=== PATIENT | female | born 1935 | race Caucasian/White ===

== ENCOUNTER 2018-08-30 22:26 | Inpatient (IN) ==
--- NOTE | 2018-08-30 23:03 | XRay Report ---
XR hip LT 2-3V w pelvis CLINICAL HISTORY: 83 years-old Female presenting with fall, pain, dementia. TECHNIQUE: Single frontal view of the pelvis and frontal and crosstable lateral views of the left hip were obtained. COMPARISON: Correlation made to plain radiograph of the pelvis from 06/04/2018. FINDINGS: Osteopenia suspected. This mildly limits evaluation. Mild multilevel degenerative changes of the lowe r lumbar spine. Sacral iliac joints, pubic symphysis, and hip joints congruent. Arcuate lines of the sacrum grossly intact. The bony pelvis is intact. Right femoral head and neck intact. Left femoral he ad congruent with the acetabulum, however, a transcervical fracture is noted. There is slight anterio r displacement of the distal fracture fragment by less than 1 cm. Slightly rotation of the distal fra cture fragment. IMPRESSION: 1. Transcervical left femoral neck fracture with less than 1 cm of anterior displacement of the dist al fracture fragment. 2. Osteopenia. Electronically signed by: Storm Chawla M.D. 08/30/2018 11:01 PM
[2018-08-30 23:51] LABS: Basophils # (auto) 0.01 K/uL (0-0.2); Basophils % (auto) 0.1 %; Eosinophils # (auto) 0.03 K/uL (0-0.5); Eosinophils % (auto) 0.3 %; Hematocrit (blood only) 34.2 % (37-47); Hemoglobin 11.2 g/dL (12.0-16.0); Immature Granulocytes # (auto) 0.04 K/uL (0.00-0.02); Immature Granulocytes % (auto) 0.4 %; Lymphocytes # (auto) 0.95 K/uL (1.2-3.4); Lymphocytes % (auto) 9.3 %; Mean Corpuscular Hgb Conc 32.7 g/dL (32-36); Mean Corpuscular Volume 91.4 fL (80-100); Mean Platelet Volume 8.7 fL (7.4-10.4); Monocytes # (auto) 0.67 K/uL (0.11-0.59); Monocytes % (auto) 6.5 %; Neutrophils # (auto) 8.57 K/uL (1.4-6.5); Neutrophils % (auto) 83.4 %; Platelet Count 280 K/uL (130-400); RDW Coefficient of Variation 12.8 % (11.5-14.5); RDW Standard Deviation 42.9 fL (36.4-46.3); Red Blood Count 3.74 M/uL (4.2-5.4); White Blood Count 10.27 K/uL (4.8-10.8)
--- NOTE | 2018-08-30 23:59 | Emergency Department Note ---
History of Present Illness General Chief complaint: Fall Stated complaint: FALL, HIP PAIN History of Present Illness This 83-year-old presents to the ER complaining of fall Location: Left hip Quality: Painful Severity: Moderate Duration: Tonight Timing: Patient was found on the ground at the sn[facility] Context: Patient was unable to bear weight and was sent in Modifying factors: better with nothing; worse with movement Patient is demented and confused at baseline. I spoke to the snf nurse who states they found her on the ground and patient is unable to bear weight. is here at bedside but was not there. states she is at baseline. Home Medications Home Medications Medication Instructions Recorded Confirmed Type atenolol [Tenormin] 25 mg PO QAM 12/10/17 08/30/18 History cyanocobalamin (vitamin B-12) 1,000 mcg PO QAM 12/10/17 08/30/18 History [Vitamin B-12] docusate sodium [Colace] 100 mg PO BID 12/10/17 08/30/18 History donepezil [Aricept] 10 mg PO HS 12/10/17 08/30/18 History duloxetine [Cymbalta] 20 mg PO BID 12/10/17 08/30/18 History olanzapine [Zyprexa] 1.25 mg PO HS 12/10/17 08/30/18 History polyethylene glycol 3350 [Miralax] 17 g PO DAILY 12/10/17 08/30/18 History glycerin (adult) 1 supp [place] DAILY PRN 06/04/18 08/30/18 History loratadine [Claritin] 10 mg PO DAILY 07/16/18 08/30/18 History atorvastatin 10 mg tablet 10 mg PO HS #90 tab 07/28/18 08/30/18 Rx atropine [Isopto Atropine] 2 drp SUBLINGUAL DIRECTED PRN 08/30/18 08/31/18 History lorazepam [Lorazepam Intensol] 1 mg PO Q4 PRN 08/30/18 08/30/18 History morphine concentrate 10 mg PO Q24W PRN 08/30/18 08/30/18 History acetaminophen 650 mg PO Q6H PRN 08/31/18 08/31/18 History acetaminophen 650 mg [place] Q4 PRN 08/31/18 08/31/18 History aspirin [Aspirin Childrens] 81 mg PO DAILY 08/31/18 08/31/18 History clobetasol 1 applic TOPICAL 3XWK 08/31/18 08/31/18 History conjugated estrogens [Premarin] 1 applic VAGINAL 3XWK 08/31/18 08/31/18 History magnesium hydroxide [Milk of 30 ml PO DAILY PRN 08/31/18 08/31/18 History Magnesia] sennosides [senna] 8.6 mg PO DAILY 08/31/18 08/31/18 History Allergies Allergy/AdvReac Type Severity Reaction Status Date / Time No Known Allergies Allergy Unverified 08/31/18 00:10 Past Med/Surg History Medical History Hyperlipidemia (Chronic) Hypertension (Chronic) Yeast infection (Resolved) Perineum pain, female (Resolved) Vascular dementia (Chronic) No pertinent family history Surgical History No pertinent past surgical history Family History Other No pertinent family history Social History Preferred Language: Lebanese marital status: Current Living Situation: Personal Care Facility Current Living Situation Comment: [facility] Feels Safe at Home: Yes Smoking Status: Never smoker Review of Systems Unobtainable due to cognitive status Physical Exam Vital Signs Vital Signs - 24 hr 08/30/18 22:26 Temperature 37.1 C Temperature Source Oral Sepsis Recent Fever Within 48 Hours No Sepsis New/Unexplained Change in Mental Status No Sepsis Action Taken by Nursing No Action Required Pulse Rate 100 H Respiratory Rate 18 Respiratory Effort / Characteristics Non-Labored Respiratory Depth Normal Respiratory Pattern Regular Blood Pressure 154/74 H Blood Pressure Mean 100 Pulse Oximetry 97 Oxygen Delivery Method Room Air VITALS: Vitals are noted on the nurse's note and reviewed by myself. Vital signs stable. GENERAL: Pleasant female demented, unable to follow commands, in no acute distress, nondiaphoretic, well-developed well-nourished. SKIN: The skin was without rashes, erythema, edema, or bruising. There is no tenting of the skin. Capillary reflex less than 2 seconds. HEAD: Normocephalic atraumatic. EARS: External auditory canals clear, tympanic membranes pearly mabry without erythema or effusion bilaterally. EYES: Pupils equal round and reactive to light and accommodation. Conjunctivae without injection, sclerae without icterus. Extraocular movements intact. NOSE: Patent, turbinates without inflammation or discharge MOUTH: Mucous membranes moist. Pharynx without erythema or exudate. Uvula midline. Airway patent. Tongue does not deviate. NECK: Supple without nuchal rigidity. No lymphadenopathy. No thyromegaly. Cervical spine is nontender. No JVD. HEART: Regular rate and rhythm LUNGS: Clear to auscultation bilaterally without wheezes, rales or rhonchi. No retractions or accessory muscle use. ABDOMEN: Positive bowel sounds x 4. Normal tympanic percussion. Soft, nontender, without masses or organomegaly. Abdul sign negative. No guarding or rebound tenderness. No CVA tenderness MUSCULOSKELETAL: No muscle atrophy, erythema, or edema noted. Left hip tender to palpation with increased pain with range of motion. Right hip full range of motion. Pelvis stable. NEURO: Patient was alert but not oriented to person place and time. Medical Decision Making Medical Records Attestation: I reviewed the patient's medical records. Home Medications Current Medication List: was personally reviewed by me Laboratory Data Attestation: I reviewed the patient's lab results. Result diagrams: 08/30/18 23:42 08/30/18 23:42 Lab Results 08/30/18 08/30/18 08/30/18 Range/Units 23:42 23:42 23:42 WBC 10.27 (4.8-10.8) K/uL RBC 3.74 L (4.2-5.4) M/uL Hgb 11.2 L (12.0-16.0) g/dL Hct 34.2 L (37-47) % MCV 91.4 (80-100) fL MCH 29.9 (25-34) pg MCHC 32.7 (32-36) g/dL RDW Std Deviation 42.9 (36.4-46.3) fL RDW Coeff of Gareth 12.8 (11.5-14.5) % Plt Count 280 (130-400) K/uL MPV 8.7 (7.4-10.4) fL Immature Gran % (Auto) 0.4 % Neut % (Auto) 83.4 % Lymph % (Auto) 9.3 % [place] % (Auto) 6.5 % Eos % (Auto) 0.3 % Baso % (Auto) 0.1 % Immature Gran # (Auto) 0.04 H (0.00-0.02) K/uL Neut # (Auto) 8.57 H (1.4-6.5) K/uL Lymph # (Auto) 0.95 L (1.2-3.4) K/uL [place] # (Auto) 0.67 H (0.11-0.59) K/uL Eos # (Auto) 0.03 (0-0.5) K/uL Baso # (Auto) 0.01 (0-0.2) K/uL PT 10.4 (9.0-12.0) Seconds INR 1.0 (0.9-1.1) APTT 27.3 (21.0-31.0) Seconds PTT Ratio 1.0 Sodium 139 (136-145) mmol/L Potassium 4.5 (3.5-5.1) mmol/L Chloride 106 (98-107) mmol/L Carbon Dioxide 29 (21-32) mmol/L Anion Gap 5.0 (3-11) BUN 25 H (7-18) mg/dl Creatinine 1.25 H (0.6-1.2) mg/dl Est Cr Clr Drug Dosing 26.3 ml/min Est GFR ( Amer) 46.4 Est GFR (Non-Af Amer) 40.0 BUN/Creatinine Ratio 20.2 H (10-20) Glucose 177 H (70-99) mg/dl Calcium 9.8 (8.5-10.1) mg/dl Total Bilirubin 0.3 (0.2-1) mg/dl AST 15 (15-37) U/L ALT 22 (12-78) U/L Alkaline Phosphatase 106 (45-117) U/L Total Protein 7.4 (6.4-8.2) gm/dl Albumin 3.5 (3.4-5.0) gm/dl Globulin 3.9 (2.5-4.0) gm/dl Albumin/Globulin Ratio 0.9 (0.9-2) Imaging Data Attestation: I personally reviewed and interpreted this imaging study as follows: [facility] Narrative Prior records reviewed and summarized above. Triage Nursing notes reviewed. Additional history obtained from family. The patient's history was concerning for hip pain. Differential diagnosis: Etiologies such as fracture, dislocation, neurovascular compromise, compartment syndrome, soft tissue injury, as well as others were entertained. Physical examination: Consistent with an isolated hip injury. ER treatment provided: IV lock Morphine NPO Bedrest On reassessment the patient felt better. Diagnostics interpreted by me: ECG: Poor baseline, normal sinus, no acute ST-T wave changes, rate of 107. Depression sinus tachycardia interpreted by myself I think arrhythmia is unlikely. EKG shows normal sinus rhythm with no interval abnormalities such as QT prolongation or WPW. There are no findings to suggest Brugada syndrome. Cardiac monitoring in the emergency department reveals no tachycardic or bradycardic dysrhythmia. Hypertrophic cardiomyopathy was considered but there are no clear historical elements pointing toward this. EKG is not suggestive. The QRS voltage is not extremely large and there are no suggestive Q waves. The labs revealed mild anemia. Imaging studies: Xrays XR hip LT 2-3V w pelvis CLINICAL HISTORY: 83 years-old Female presenting with fall, pain, dementia. TECHNIQUE: Single frontal view of the pelvis and frontal and crosstable lateral views of the left hip were obtained. COMPARISON: Correlation made to plain radiograph of the pelvis from 06/04/2018. FINDINGS: Osteopenia suspected. This mildly limits evaluation. Mild multilevel degenerative changes of the lower lumbar spine. Sacral iliac joints, pubic symphysis, and hip joints congruent. Arcuate lines of the sacrum grossly intact. The bony pelvis is intact. Right femoral head and neck intact. Left femoral head congruent with the acetabulum, however, a transcervical fracture is noted. There is slight anterior displacement of the distal fracture fragment by less than 1 cm. Slightly rotation of the distal fracture fragment. IMPRESSION: 1. Transcervical left femoral neck fracture with less than 1 cm of anterior displacement of the distal fracture fragment. 2. Osteopenia. Electronically signed by: Storm Chawla M.D. Chest x-ray with no acute consolidation, pneumothorax or free of mitral rotation. The patient has an isolated hip fracture and will need admission to the hospital. Consultation: A consultation was placed with medicine, Dr. Mar and orthopedics was notified. The case was discussed and diagnostics were reviewed. The patient was evaluated in the ER for further treatment. Exam and history seem consistent with hip fracture. Patient will be admitted to medicine. Orthopedics is notified. Family is agreeable to treatment plan of admission. Case reviewed with my attending The chart was completed utilizing [employer] voice recognition software. Grammatical errors, random word insertions, pronoun errors, and incomplete sentences are an occassional consequence of this system due to software limitations, ambient noise, and hardware issues. Any formal questions or concerns about the content, text, or information contained within the body of this dictation should be directly addressed to the physician client account assistant for clarification. Impression & Plan Closed fracture of left hip Discharge Plan Visit Data Chief Complaint: Fall Stated Complaint: FALL, HIP PAIN ED Provider: Benjamin Taylor ED Midlevel Provider: Fern Mccullough Discharge Problem: Closed fracture of left hip Patient Disposition: Admitted As Inpatient Condition: Fair Forms Stand Alone Forms: My [facility] Prescriptions Prescriptions: No Action atorvastatin [Lipitor] 10 mg tablet 10 mg PO HS Qty: 90 RF: 3 polyethylene glycol 3350 [Miralax] 17 gram Powder In Packet 17 g PO DAILY RF: 0 donepezil [Aricept] 10 mg Tablet 10 mg PO HS RF: 0 atenolol [Tenormin] 25 mg Tablet 25 mg PO QAM RF: 0 olanzapine [Zyprexa] 2.5 mg Tablet 1.25 mg PO HS RF: 0 cyanocobalamin (vitamin B-12) [Vitamin B-12] 500 mcg Tablet 1,000 mcg PO QAM RF: 0 docusate sodium [Colace] 100 mg Capsule 100 mg PO BID RF: 0 duloxetine [Cymbalta] 20 mg Capsule,Delayed Release(Dr/Ec) 20 mg PO BID RF: 0 loratadine [Claritin] 10 mg Tablet 10 mg PO DAILY RF: 0 morphine concentrate 100 mg/5 mL (20 mg/mL) solution 10 mg PO Q24W PRN (Reason: Pain) RF: 0 atropine [Isopto Atropine] 1 % drops 2 drp sublingual DIRECTED PRN (Reason: Itching) RF: 0 lorazepam [Lorazepam Intensol] 2 mg/mL concentrate 1 mg PO Q4 PRN (Reason: Agitation) RF: 0 sennosides [senna] 8.6 mg Tablet 8.6 mg PO DAILY RF: 0 acetaminophen 325 mg Tablet 650 mg PO Q6H PRN (Reason: Pain) RF: 0 acetaminophen 650 mg suppository 650 mg W[place] Q4 PRN (Reason: moderate pain) RF: 0 magnesium hydroxide [Milk of Magnesia] 400 mg/5 mL Suspension 30 ml PO DAILY PRN (Reason: Constipation) RF: 0 Premarin 0.625 mg/gram Cream 1 applic VAGINAL 3XWK RF: 0 aspirin [Aspirin Childrens] 81 mg Tablet,Chewable 81 mg PO DAILY RF: 0 clobetasol 0.05 % Ointment 1 applic TOPICAL 3XWK RF: 0 glycerin (adult) Suppository 1 supp W[place] DAILY PRN (Reason: Constipation) RF: 0 Referrals Referrals: Rafa Hall MD [Primary Care Provider] - Discharge Problem: Closed fracture of left hip Qualifiers: Encounter type: initial encounter Qualified Code(s): S72.002A - Fracture of unspecified part of neck of left femur, initial encounter for closed fracture
[2018-08-31] MEDS ORDERED: MoRPHine SULFATE 4 MG/ML 1 ML CARP\\VIAL IV STA (00:10)
--- NOTE | 2018-08-31 00:11 | History & Physical Report ---
Date of Service August 31, 2018 Assessment & Plan (1) Closed fracture of left hip: Mrs. Wiley is an 83-year-old female who presents via EMS to the emergency room after an unwitnessed fall at her home at [facility] earlier this evening. She is said to have fallen in her room, and then complained of persistent hip pain. In the ED: Radiograph of the hip and pelvis showed transcervical left femoral neck fracture with less than 1 cm of anterior displacement of the distal fracture fragment and osteopenia. Patient was given morphine 4 mg. EKG appears to have some artifact, normal sinus no ST-T wave changes. #Closed left hip fracture, minimally displaced -orthopedics consulted -pain control with 2mg morphine q4h PRN, acetaminophen -Nogueira in place as well #Elevated creatinine -1.25 from her baseline of 0.98 -Dry on exam, suspect prerenal mild azotemia -IV fluids -Follow BMP, avoid nephrotoxic agents #Anemia, normocytic -Appears to be at her baseline, will likely become more anemic with this fracture -Follow clinically #Hospice patient -per was begun on hospice 1-2 weeks prior to admission. Lengthy discussion regarding wishes, code status updated. FEN/GI: N.p.o. until seen by Ortho. NSS running at 125. Nogueira in place. DVT ppx: Lovenox every 24 CODE STATUS: DNR/DNI as discussed with her which is her proxy. Patient was placed on hospice 1 to 2 weeks ago per her . Polst forms needs updating. DISPO: MedSurg Other ongoing medical problems: #Vascular dementia, nonverbal: continue olanzapine, Aricept, reorientation #Hypertension: Continue atenolol 25 mg every morning #Hyperlipidemia: Continue statin--given the patient is on hospice, this medication could likely be de-prescribed. As well as her aspirin. #Vaginitis: Continue Premarin and topical clobetasol #Depression: Continue Cymbalta (2) No pertinent past surgical history: (3) Hyperlipidemia: (4) Hypertension: (5) Vascular dementia: History of Present Illness Chief Complaint: Unwitnessed fall at home in [facility]. Primary Care Provider: Rafa Hall MD Mrs. Wiley is an 83-year-old female who presents via EMS to the emergency room after an unwitnessed fall at her home at [facility] earlier this evening. She is said to have fallen in her room, and then complained of persistent hip pain. She is accompanied by her . In the ED: Radiograph of the hip and pelvis showed transcervical left femoral neck fracture with less than 1 cm of anterior displacement of the distal fracture fragment and osteopenia. Patient was given morphine 4 mg. EKG appears to have some artifact, normal sinus no ST-T wave changes. PMH 1. Vascular dementia with behavioral disturbance 2. Hypotension 3. B12 deficiency 4. Hyperlipidemia 5. 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 On hospice 8. Hypertension PSH 1. Appendectomy SH Lives at [facility]. Is . is her proxy. Has a daughter who is local. Originally born in [place], has reverted to speaking only in Pashto. Allergies Allergy/AdvReac Type Severity Reaction Status Date / Time No Known Allergies Allergy Unverified 08/31/18 00:10 Home Medications Home Medications Medication Instructions Recorded Confirmed Type atenolol [Tenormin] 25 mg PO QAM 12/10/17 08/30/18 History cyanocobalamin (vitamin B-12) 1,000 mcg PO QAM 12/10/17 08/30/18 History [Vitamin B-12] docusate sodium [Colace] 100 mg PO BID 12/10/17 08/30/18 History donepezil [Aricept] 10 mg PO HS 12/10/17 08/30/18 History duloxetine [Cymbalta] 20 mg PO BID 12/10/17 08/30/18 History olanzapine [Zyprexa] 1.25 mg PO HS 12/10/17 08/30/18 History polyethylene glycol 3350 [Miralax] 17 g PO DAILY 12/10/17 08/30/18 History glycerin (adult) 1 supp DC DAILY PRN 06/04/18 08/30/18 History loratadine [Claritin] 10 mg PO DAILY 07/16/18 08/30/18 History atorvastatin 10 mg tablet 10 mg PO HS #90 tab 07/28/18 08/30/18 Rx atropine [Isopto Atropine] 2 drp SUBLINGUAL DIRECTED PRN 08/30/18 08/31/18 History lorazepam [Lorazepam Intensol] 1 mg PO Q4 PRN 08/30/18 08/30/18 History morphine concentrate 10 mg PO Q24W PRN 08/30/18 08/30/18 History acetaminophen 650 mg PO Q6H PRN 08/31/18 08/31/18 History acetaminophen 650 mg DC Q4 PRN 08/31/18 08/31/18 History aspirin [Aspirin Childrens] 81 mg PO DAILY 08/31/18 08/31/18 History clobetasol 1 applic TOPICAL 3XWK 08/31/18 08/31/18 History conjugated estrogens [Premarin] 1 applic VAGINAL 3XWK 08/31/18 08/31/18 History magnesium hydroxide [Milk of 30 ml PO DAILY PRN 08/31/18 08/31/18 History Magnesia] sennosides [senna] 8.6 mg PO DAILY 08/31/18 08/31/18 History Past Med/Surg History Medical History Hyperlipidemia (Chronic) Hypertension (Chronic) Yeast infection (Resolved) Perineum pain, female (Resolved) Vascular dementia (Chronic) No pertinent family history Surgical History No pertinent past surgical history Family History Other No pertinent family history Social History Preferred Language: Georgian Communication Ability: Impaired Communication Ability Comment: History of dementia, patient unable to respond marital status: Current Living Situation: [facility] Current Living Situation Comment: [facility] Feels Safe at Home: Yes Smoking Status: Unknown if ever smoked Physical Exam Physical Exam: Vitals noted and within normal limits with the exception of mild hypertension GENERAL: Awake, alert and nonverbal, which states is her baseline. nontoxic-appearing, in mild distress. HENT: Normocephalic, atraumatic. Nasal cannula in place. Mucus membranes appear dry. EYES: Normal conjunctiva. Sclera non-icteric. EOMI. NECK: Supple. Full range of motion. RESPIRATORY: Clear to auscultation. Normal work of breathing. CARDIAC: Regular rate, normal rhythm. Extremities warm and well perfused. ABDOMEN: non-distended. LOWER EXTREMITIES: Inspection of calves reveal equal size bilaterally. No edema. NEURO: No gross focal motor deficits noted. Nonverbal, difficulty with following commands. SKIN: Rash not present. No jaundice noted. PSYCH: Appropriate mood and affect. MSK: Left lower extremity with slight external rotation. Exam limited by agitation. Exam as done by Nkechi Jose MD, Gl[employer] Presser. Results & Data Vital Signs (Past 12 Hours) Vital Signs Temp Pulse Resp BP Pulse Ox 08/30/18 22:26 37.1 C 100 H 18 154/74 H 97 Laboratory Results 08/30/18 08/30/18 08/30/18 Range/Units 23:42 23:42 23:42 WBC (4.8-10.8) K/uL RBC (4.2-5.4) M/uL Hgb (12.0-16.0) g/dL Hct (37-47) % MCV (80-100) fL MCH (25-34) pg MCHC (32-36) g/dL RDW Std Deviation (36.4-46.3) fL RDW Coeff of Gareth (11.5-14.5) % Plt Count (130-400) K/uL MPV (7.4-10.4) fL Immature Gran % (Auto) % Neut % (Auto) % Lymph % (Auto) % Lee % (Auto) % Eos % (Auto) % Baso % (Auto) % Immature Gran # (Auto) (0.00-0.02) K/uL Neut # (Auto) (1.4-6.5) K/uL Lymph # (Auto) (1.2-3.4) K/uL Lee # (Auto) (0.11-0.59) K/uL Eos # (Auto) (0-0.5) K/uL Baso # (Auto) (0-0.2) K/uL PT 10.4 (9.0-12.0) Seconds INR 1.0 (0.9-1.1) APTT 27.3 (21.0-31.0) Seconds PTT Ratio 1.0 Sodium 139 (136-145) mmol/L Potassium 4.5 (3.5-5.1) mmol/L Chloride 106 (98-107) mmol/L Carbon Dioxide 29 (21-32) mmol/L Anion Gap 5.0 (3-11) BUN 25 H (7-18) mg/dl Creatinine 1.25 H (0.6-1.2) mg/dl Est Cr Clr Drug Dosing 26.3 ml/min Est GFR ( Amer) 46.4 Est GFR (Non-Af Amer) 40.0 BUN/Creatinine Ratio 20.2 H (10-20) Glucose 177 H (70-99) mg/dl Calcium 9.8 (8.5-10.1) mg/dl Total Bilirubin 0.3 (0.2-1) mg/dl AST 15 (15-37) U/L ALT 22 (12-78) U/L Alkaline Phosphatase 106 (45-117) U/L Total Protein 7.4 (6.4-8.2) gm/dl Albumin 3.5 (3.4-5.0) gm/dl Globulin 3.9 (2.5-4.0) gm/dl Albumin/Globulin Ratio 0.9 (0.9-2) Blood Type A Positive Antibody Screen NEGATIVE 08/30/18 Range/Units 23:42 WBC 10.27 (4.8-10.8) K/uL RBC 3.74 L (4.2-5.4) M/uL Hgb 11.2 L (12.0-16.0) g/dL Hct 34.2 L (37-47) % MCV 91.4 (80-100) fL MCH 29.9 (25-34) pg MCHC 32.7 (32-36) g/dL RDW Std Deviation 42.9 (36.4-46.3) fL RDW Coeff of Gareth 12.8 (11.5-14.5) % Plt Count 280 (130-400) K/uL MPV 8.7 (7.4-10.4) fL Immature Gran % (Auto) 0.4 % Neut % (Auto) 83.4 % Lymph % (Auto) 9.3 % Lee % (Auto) 6.5 % Eos % (Auto) 0.3 % Baso % (Auto) 0.1 % Immature Gran # (Auto) 0.04 H (0.00-0.02) K/uL Neut # (Auto) 8.57 H (1.4-6.5) K/uL Lymph # (Auto) 0.95 L (1.2-3.4) K/uL Lee # (Auto) 0.67 H (0.11-0.59) K/uL Eos # (Auto) 0.03 (0-0.5) K/uL Baso # (Auto) 0.01 (0-0.2) K/uL PT (9.0-12.0) Seconds INR (0.9-1.1) APTT (21.0-31.0) Seconds PTT Ratio Sodium (136-145) mmol/L Potassium (3.5-5.1) mmol/L Chloride (98-107) mmol/L Carbon Dioxide (21-32) mmol/L Anion Gap (3-11) BUN (7-18) mg/dl Creatinine (0.6-1.2) mg/dl Est Cr Clr Drug Dosing ml/min Est GFR ( Amer) Est GFR (Non-Af Amer) BUN/Creatinine Ratio (10-20) Glucose (70-99) mg/dl Calcium (8.5-10.1) mg/dl Total Bilirubin (0.2-1) mg/dl AST (15-37) U/L ALT (12-78) U/L Alkaline Phosphatase (45-117) U/L Total Protein (6.4-8.2) gm/dl Albumin (3.4-5.0) gm/dl Globulin (2.5-4.0) gm/dl Albumin/Globulin Ratio (0.9-2) Blood Type Antibody Screen Diagnostic Findings XR hip LT 2-3V w pelvis CLINICAL HISTORY: 83 years-old Female presenting with fall, pain, dementia. TECHNIQUE: Single frontal view of the pelvis and frontal and crosstable lateral views of the left hip were obtained. COMPARISON: Correlation made to plain radiograph of the pelvis from 06/04/2018. FINDINGS: Osteopenia suspected. This mildly limits evaluation. Mild multilevel degenerative changes of the lower lumbar spine. Sacral iliac joints, pubic symphysis, and hip joints congruent. Arcuate lines of the sacrum grossly intact. The bony pelvis is intact. Right femoral head and neck intact. Left femoral head congruent with the acetabulum, however, a transcervical fracture is noted. There is slight anterior displacement of the distal fracture fragment by less than 1 cm. Slightly rotation of the distal fracture fragment. IMPRESSION: 1. Transcervical left femoral neck fracture with less than 1 cm of anterior displacement of the distal fracture fragment. 2. Osteopenia. Electronically signed by: Storm Chawla M.D. Code Status & VTE Plan Code Status DNR/DNI as discussed with her proxy. Supervising Physician Co-Signing Physician Notes Attending addendum: I have physically seen this patient, have supervised the medical residents activities, and agree with the H&P unless as otherwise noted. Assessment and Plan: Closed left femoral neck fracture- [facility]. NPO. IV fluids. Morphine 2 mg IV every 4 hours as needed severe pain. Acetaminophen 650 mg p.o. every 6 hours as needed or 1 5 mg IV every 8 hours PRN mild pain or temperature. Nogueira catheter. Consult orthopedics. Remainder of orders and notations as noted. PG Care Time/CCT Total # of Minutes Spent Total Time Spent with Patient: Total time spent is greater than 50% in coordination of care (as documented) at patient's floor/unit and/or counseling patient: Resident Activity Tracking Resident Involvement: Resident Care Provided Care Provided: Adult Hospital Medicine (1) Closed fracture of left hip Encounter type: initial encounter Qualified Code(s): S72.002A - Fracture of unspecified part of neck of left femur, initial encounter for closed fracture
[2018-08-31 00:12] LABS: Albumin Level 3.5 gm/dl (3.4-5.0); BUN Creatinine Ratio 20.2 (10-20); Calcium 9.8 mg/dl (8.5-10.1); Creatinine Clr Calc Pharmacy 26.3 ml/min; Est GFR (African American) 46.4; Potassium 4.5 mmol/L (3.5-5.1)
[2018-08-31 00:15] LABS: Albumin Globulin Ratio 0.9 (0.9-2); Bilirubin,Total 0.3 mg/dl (0.2-1); Globulin 3.9 gm/dl (2.5-4.0); Total Protein 7.4 gm/dl (6.4-8.2)
[2018-08-31 00:17] LABS: Partial Thromboplastin Time 27.3 Seconds (21.0-31.0); Prothrombin Time 10.4 Seconds (9.0-12.0)
--- NOTE | 2018-08-31 00:23 | Emergency Department Note ---
ED Visit Note Staff note: I have seen and examined this patient. I have discussed this case with my PA and generally agree with the ED note and findings. . : Closed fracture of left hip Qualifiers: Encounter type: initial encounter Qualified Code(s): S72.002A - Fracture of unspecified part of neck of left femur, initial encounter for closed fracture
[2018-08-31] MEDS ORDERED: ACETAMINOPHEN 325 MG TAB PO PRN (02:21)
[2018-08-31] MEDS ORDERED: MAGNESIUM HYDROXIDE SUSP 30 ML UDC PO PRN (02:21)
[2018-08-31] MEDS ORDERED: MoRPHine SULFATE 10 MG/0.5 ML UDP PO PRN (02:21)
[2018-08-31] MEDS ORDERED: GLYCERIN ADULT 12 EA SUPP PR PRN (02:21)
[2018-08-31] MEDS ORDERED: ATROPINE SULFATE 1% OP SOLN 2 ML BTL SL PRN (02:21)
[2018-08-31] MEDS ORDERED: ACETAMINOPHEN 650 MG SUPP PR PRN (02:21)
[2018-08-31] MEDS: SODIUM CHLORIDE 0.9% 1000ML 1,000 ML IV SCH ×3 (03:20→18:49)
[2018-08-31 03:43] LABS: Appearance Urine Turbid (Clear); Bacteria Urine Automated Negative (Negative); Bilirubin Urine Negative (Negative); Blood Urine 2+ (Negative); Color Urine Yellow; Epithelial Cell Urine Auto 20-30 /lpf (0-5); Glucose Urine UA Negative (Negative); Ketones Urine Negative (Negative); Leukocyte Esterase Urine 3+ (Negative); Nitrite Urine Negative (Negative); Specific Gravity Urine 1.016 (1.000-1.030); Urobilinogen Urine Negative (Negative); WBC Urine Automated >30 /hpf (0-5); pH Urine 7.5 (4.5-7.5)
[2018-08-31 03:54] LABS: Protein Urine 2+ (Negative)
[2018-08-31 04:10] LABS: RBC Urine Automated 0-4 /hpf (0-4)
[2018-08-31 04:13] LABS: Cast Urine Automated 0 /lpf (0-5)
[2018-08-31] MEDS: ASPIRIN 81 MG CHEW PO SCH (09:07)
[2018-08-31] MEDS: DOCUSATE SODIUM 100 MG CAP PO SCH ×2 (09:07→20:36)
[2018-08-31] MEDS: ATENOLOL 25 MG TABLET PO SCH (09:08)
[2018-08-31] MEDS: LORATADINE 10 MG TAB PO SCH (09:08)
[2018-08-31] MEDS: DULOXETINE HCL 20 MG CAP PO SCH ×2 (09:08→20:37)
[2018-08-31] MEDS: POLYETHYLENE (MIRALAX) 17 GM PACK PO SCH (09:09)
[2018-08-31] MEDS: ENOXAPARIN INJ 30 MG/0.3 ML SYR SQ SCH (09:09)
[2018-08-31] MEDS: CYANOCOBALAMIN 500 MCG TABLET (VITAMIN B-12) PO SCH (09:10)
[2018-08-31] MEDS: SENNA 8.6 MG TAB PO SCH (09:10)
--- NOTE | 2018-08-31 09:39 | Orthopedic Consultation ---
Date of Consultation August 31, 2018 Assessment & Plan (1) Closed fracture of left hip: Spoke with the hospitalist team who state she is not cleared medically for surgery. After a lengthy discussion with the patient's family regarding my above clinical findings as well as reviewing her images with them, I explained that the patient is not medically stable for surgery. We did discuss in general terms of the recommended [id number] treatment versus surgery. Risks of surgery, which include but are not limited to: bleeding, infection, re- operation, damage to nerves and arteries, continued pain, failure of the hardware, dislocation, DVT, and . In addition the family is aware of the 20-30% morbidity associated with hip fracture for up to 1 year following a hip fracture no matter the treatment. Again the patient is not medically cleared for surgery and she will be treated [id number]. They understand that her pain will decrease substantially in 2 weeks. She will follow-up in the office in 3-4 weeks with repeat x-rays AP pelvis and AP & lateral left hip (Call [phone] for appointment). The family understands all of these instructions and explanations, all of their questions have been satisfactorily addressed. Please recall if there are any other orthopeadic issues. Present on Admission?: Yes History of Present Illness Reason for Consultation: L hip fracture Requesting Physician: Kyle Paige MD Attending Physician: Maribell Means MD History of Present Illness 83 y.o. female sustained an unwitnessed fall yesterday and was brought to ED. X-rays showed a Left hip fracture. The patient is on hospice. She has dementia and ambulates with a walker. I was consulted for further evaluation and treatment. Patient has very poor communication skills. Allergies Allergy/AdvReac Type Severity Reaction Status Date / Time No Known Allergies Allergy Unverified 08/31/18 00:10 Home Medications Home Medications Medication Instructions Recorded Confirmed Type atenolol [Tenormin] 25 mg PO QAM 12/10/17 08/30/18 History cyanocobalamin (vitamin B-12) 1,000 mcg PO QAM 12/10/17 08/30/18 History [Vitamin B-12] docusate sodium [Colace] 100 mg PO BID 12/10/17 08/30/18 History donepezil [Aricept] 10 mg PO HS 12/10/17 08/30/18 History duloxetine [Cymbalta] 20 mg PO BID 12/10/17 08/30/18 History olanzapine [Zyprexa] 1.25 mg PO HS 12/10/17 08/30/18 History polyethylene glycol 3350 [Miralax] 17 g PO DAILY 12/10/17 08/30/18 History glycerin (adult) 1 supp [place] DAILY PRN 06/04/18 08/30/18 History loratadine [Claritin] 10 mg PO DAILY 07/16/18 08/30/18 History atorvastatin 10 mg tablet 10 mg PO HS #90 tab 07/28/18 08/30/18 Rx atropine [Isopto Atropine] 2 drp SUBLINGUAL DIRECTED PRN 08/30/18 08/31/18 History lorazepam [Lorazepam Intensol] 1 mg PO Q4 PRN 08/30/18 08/30/18 History morphine concentrate 10 mg PO Q24W PRN 08/30/18 08/30/18 History acetaminophen 650 mg PO Q6H PRN 08/31/18 08/31/18 History acetaminophen 650 mg FL Q4 PRN 08/31/18 08/31/18 History aspirin [Aspirin Childrens] 81 mg PO DAILY 08/31/18 08/31/18 History clobetasol 1 applic TOPICAL 3XWK 08/31/18 08/31/18 History conjugated estrogens [Premarin] 1 applic VAGINAL 3XWK 08/31/18 08/31/18 History magnesium hydroxide [Milk of 30 ml PO DAILY PRN 08/31/18 08/31/18 History Magnesia] sennosides [senna] 8.6 mg PO DAILY 08/31/18 08/31/18 History Patient History Medical History Hyperlipidemia (Chronic) Hypertension (Chronic) Yeast infection (Resolved) Perineum pain, female (Resolved) Vascular dementia (Chronic) No pertinent family history Surgical History No pertinent past surgical history Family History Other No pertinent family history Social History Preferred Language: Moldovan Communication Ability: Impaired Communication Ability Comment: History of dementia, patient unable to respond marital status: Current Living Situation: Jail Current Living Situation Comment: [facility] Feels Safe at Home: Yes Smoking Status: Unknown if ever smoked Review of Systems Review of Systems: Unobtainable due to cognitive status Physical Exam Physical Exam: Patient is laying comfortably in bed. Easily awakened. AAO x 1. LLE: wiggles toes. Sensation to light touch intact. 2+ DP pulse. Leg lengths equal. No pain with log roll of hip. Results & Data Vital Signs (Past 12 Hours) Vital Signs Temp Pulse Pulse Pulse Resp BP BP 08/31/18 07:54 95 H 15 08/31/18 02:51 36.4 C L 100 H 18 08/31/18 01:50 106 H 18 170/74 H 08/31/18 00:41 100 H 18 163/72 H 08/30/18 22:26 37.1 C 100 H 18 154/74 H BP Pulse Ox 08/31/18 07:54 147/77 H 98 08/31/18 02:51 161/77 H 96 08/31/18 01:50 95 08/31/18 00:41 97 08/30/18 22:26 97 Diagnostic Findings AP pelvis, AP & Lat left hip show a subcapital hip fracture with slight anterior displacement. (1) Closed fracture of left hip Encounter type: initial encounter Qualified Code(s): S72.002A - Fracture of unspecified part of neck of left femur, initial encounter for closed fracture
--- NOTE | 2018-08-31 11:40 | XRay Report ---
SINGLE VIEW CHEST CLINICAL HISTORY: Vomiting. FINDINGS: 2 AP, portable, upright chest radiographs are compared to study dated 07/16/2018. The examin ation is degraded by portable technique and patient rotation. The heart is top normal for projectio n and there is atherosclerotic calcification of the thoracic aorta. The pulmonary vasculature is nonc ongested. Chronic interstitial thickening and elevation of the right hemidiaphragm are similar to pre vious. No airspace consolidation or large pleural effusion is identified. No pneumothorax is seen. Th e skeletal structures are osteopenic. The bony thorax is grossly intact. IMPRESSION: No active disease in the chest. Electronically signed by: Bradley Willard M.D. 08/31/2018 11:39 AM
[2018-08-31] MEDS: MoRPHine SULFATE 2 MG/ML CARP IV PRN (13:44)
[2018-08-31] MEDS: LORazepam 1 MG TAB PO PRN (15:03)
--- NOTE | 2018-08-31 16:55 | Hospitalist Progress Note ---
Date of Service August 31, 2018 Assessment & Plan (1) Closed fracture of left hip: Closed left hip fracture , minimally displaced . Pt seen by Dr.Bader Estela mathews and her family had a long discussion with him about plan of care. Pt cardiac risk still needs to be evaluated by cardiology. ECHO cardiogram was done today and EF is 55-60% with mild concentric left ventricular hypertrophy, and otherwise unremarkable. We discussed it with the family and explained to daughter Zayra -even if pt is operable candidate , with her severe dementia she would not be able to comply postoperatively with rehabilitation and non-weight bearing. Specifically we discussed the risks of operation such as bleding , infection, re-operation, nerve damage etc and 20-30 morbidity associated wth a hip fracture which is all aggravated with pt inability to follow the commanded and being severely demented. Dr. Paige r ecommended that she follows up in 3-4 weeks with repeat Xrays AP pelvis and AP &lateral left hip. Pt is not in pain. Present on Admission?: Yes (2) Vascular dementia: Pt has severe vascular dementia.This is her baseline per pt daughter Zayra.Continue current home regimen . -Continue Donepezil -Continue Olanzepine -Continue Lorazepam -Continue Duloxetine for chronic pain -Continue hospice as pt family desire Present on Admission?: Yes (3) Hyperlipidemia: Stable, no new issues -Continue Atorvastatin Present on Admission?: Yes (4) Hypertension: Stable, continue ASA 81 and atenolol. -Consult cardiology for further evaluation of pt operative and postoperative risk Present on Admission?: Yes Subjective pt seen and examined at the bedside. Pt has severe dementia and she is disoriented. Her daughter Zayra and her son in law are next to the bedside and they stated that this is patient's baseline. She was able to walk while at home and usually she is more active at night. He lives at [facility] . She was brought by EMS after unwitnessed fall and persistent c/o left hip pain.There was no any bruise or lu on the left hip. Pt is poor historian and unable due to dementia to follow the commands nor she is able to give any intelligible answer.Pt daughter Zayra said that pt declined significantly in the past year, lost weight of 15 lbs and two weeks ago they agreed to place her on Hospice care. Pt is able to eat with assistance. She becomes combative on occasions especial when she needs to be moved or cleaned. Pt is afebrile. Review of Systems Review of Systems: All systems reviewed & are unremarkable except as noted in HPI & below Physical Exam Constitutional: + cachectic Eyes: PERRL, conjunctivae normal, anicteric sclerae ENMT: external ear and nose normal, oropharynx normal Neck: trachea midline, no thyromegaly Respiratory: normal respiratory effort, lungs clear to auscultation Cardiovascular: RRR, no murmur, no edema Chest (Breasts): normal inspection/palpation of breasts Gastrointestinal (Abdomen): normal bowel sounds, soft, nontender, no hepatosplenomegaly Musculoskeletal: Extremities: + limited ROM of extremities Gait: + antalgic gait Pt is unable to follow the commands due to the severe dementia. Left hip on exam -there is no deformity or bruise. Skin is clean dry and intact over the fractured hip. Skin: no rashes, warm and dry Neurologic: awake and + confused Speech / Cognition: + abnormal speech, + expressive aphasia and + abnormal cognition Psychiatric: Thought Process: + incoherent thought process Insight: + severely impaired insight Genitourinary: no vaginal lesions, no adnexal mass Lymphatic: no cervical or axillary lymphadenopathy Results & Data Vital Signs (Past 12 Hours) Vital Signs Pulse Resp BP Pulse Ox 08/31/18 07:54 95 H 15 147/77 H 98 PG Care Time/CCT Total # of Minutes Spent Total Time Spent with Patient: Total time spent is greater than 50% in coordination of care (as documented) at patient's floor/unit and/or counseling patient: (1) Closed fracture of left hip Encounter type: initial encounter Qualified Code(s): S72.002A - Fracture of unspecified part of neck of left femur, initial encounter for closed fracture
--- NOTE | 2018-08-31 17:44 | CT Scan Report ---
CT SCAN OF THE BRAIN WITHOUT IV CONTRAST CLINICAL HISTORY: Fall. COMPARISON STUDY: CT of the brain dated 06/04/2018 and 05/16/2006. TECHNIQUE: Unenhanced axial CT scan of the brain is performed from the vertex to the skull base. A do se lowering technique was utilized adhering to the principles of ALARA. CT DOSE: 537.48 mGy.cm FINDINGS: Brain parenchyma: There are age-related involutional changes noting moderate to advanced subcortical and periventricular microangiopathic change. There is no hemorrhage, mass effect, or evidence of acu te territorial ischemia by CT criteria. There is a 3 cm calcified structure along the planum sphenoid arnoldo, unchanged from prior studies and likely representing a meningioma. There is no associated mass e ffect. There are chronic lacunar infarcts identified in the right basal ganglia and the anterior limb of the right internal capsule. Dumont-white matter differentiation is preserved. No extra-axial fluid collection is seen. Ventricles, sulci, cisterns: Prominent secondary to involutional change. Intracranial vasculature: There is atherosclerotic calcification of the cavernous carotid and vertebr al arteries. Calvarium: The skeletal structures are osteopenic. No depressed calvarial fracture is identified. Sinuses and mastoids: The visualized paranasal sinuses are clear. The mastoid air cells are well pneu matized. Orbits: The bony orbits are grossly intact. IMPRESSION: There is no hemorrhage, mass effect, or evidence of acute territorial ischemia by CT clarissa mazariegos. Electronically signed by: Bradley Willard M.D. 08/31/2018 5:43 PM
[2018-08-31] MEDS ORDERED: PNEUMOCOCCAL ADMINISTRATION CHARGE ONE (18:00)
[2018-08-31] MEDS ORDERED: PNEUMOCOCCAL POLYSACCHARIDES 25 MCG/0.5 ML VIAL/SYR IM ONE (18:00)
[2018-08-31] MEDS: OLANZAPINE 2.5 MG TAB PO SCH (20:36)
[2018-08-31] MEDS: DONEPEZIL HCL 10 MG TAB PO SCH (20:37)
[2018-08-31] MEDS: ATORVASTATIN 10 MG TAB PO SCH (20:38)
[2018-09-01] MEDS: MoRPHine SULFATE 2 MG/ML CARP IV PRN (05:30)
[2018-09-01 06:54] LABS: Basophils # (auto) 0.01 K/uL (0-0.2); Basophils % (auto) 0.1 %; Eosinophils # (auto) 0.21 K/uL (0-0.5); Eosinophils % (auto) 2.1 %; Immature Granulocytes # (auto) 0.04 K/uL (0.00-0.02); Immature Granulocytes % (auto) 0.4 %; Lymphocytes # (auto) 0.72 K/uL (1.2-3.4); Mean Corpuscular Hgb Conc 32.3 g/dL (32-36); Mean Corpuscular Volume 91.4 fL (80-100); Mean Platelet Volume 8.4 fL (7.4-10.4); Monocytes # (auto) 0.72 K/uL (0.11-0.59); Neutrophils # (auto) 8.52 K/uL (1.4-6.5); Neutrophils % (auto) 83.4 %; Platelet Count 204 K/uL (130-400); RDW Coefficient of Variation 12.7 % (11.5-14.5); RDW Standard Deviation 42.9 fL (36.4-46.3); Red Blood Count 3.39 M/uL (4.2-5.4); White Blood Count 10.22 K/uL (4.8-10.8)
[2018-09-01 07:28] LABS: Albumin Level 2.8 gm/dl (3.4-5.0); BUN Creatinine Ratio 22.6 (10-20); Calcium 8.1 mg/dl (8.5-10.1); Creatinine Clr Calc Pharmacy 47.8 ml/min; Est GFR (African American) 87.4; Est GFR (Non-African American) 75.4; Potassium 3.9 mmol/L (3.5-5.1)
[2018-09-01 07:31] LABS: Albumin Globulin Ratio 0.8 (0.9-2); Bilirubin,Total 0.5 mg/dl (0.2-1); Globulin 3.4 gm/dl (2.5-4.0); Total Protein 6.2 gm/dl (6.4-8.2)
[2018-09-01] MEDS: CYANOCOBALAMIN 500 MCG TABLET (VITAMIN B-12) PO SCH (08:37)
[2018-09-01] MEDS: POLYETHYLENE (MIRALAX) 17 GM PACK PO SCH (08:37)
[2018-09-01] MEDS: SENNA 8.6 MG TAB PO SCH (08:37)
[2018-09-01] MEDS: ASPIRIN 81 MG CHEW PO SCH (08:37)
[2018-09-01] MEDS: ENOXAPARIN INJ 30 MG/0.3 ML SYR SQ SCH (08:38)
[2018-09-01] MEDS: DULOXETINE HCL 20 MG CAP PO SCH ×2 (08:38→22:28)
[2018-09-01] MEDS: LORATADINE 10 MG TAB PO SCH (08:38)
[2018-09-01] MEDS: DOCUSATE SODIUM 100 MG CAP PO SCH ×2 (08:38→22:42)
[2018-09-01] MEDS: ATENOLOL 25 MG TABLET PO SCH (08:38)
[2018-09-01] MEDS: LORazepam 1 MG TAB PO PRN (09:04)
[2018-09-01] MEDS ORDERED: CLOBETASOL PROPIONATE 0.05% OINT 15 GM TUBE EXT SCH (21:00)
[2018-09-01] MEDS ORDERED: PREMARIN VAG CRM 14 APPLN/30 GM TUBE PV SCH (21:00)
--- NOTE | 2018-09-01 21:36 | Hospitalist Progress Note ---
Date of Service September 01, 2018 Assessment & Plan (1) Closed fracture of left hip: Closed left hip fracture , minimally displaced . Pt seen by Dr.Bader Estela mathews and her family had a long discussion with him about plan of care. Pt cardiac risk still needs to be evaluated by cardiology. ECHO cardiogram was done today and EF is 55-60% with mild concentric left ventricular hypertrophy, and otherwise unremarkable. We discussed it with the family and explained to daughter Zayra -even if pt is operable candidate , with her severe dementia she would not be able to comply postoperatively with rehabilitation and non-weight bearing. Specifically we discussed the risks of operation such as bleding , infection, re-operation, nerve damage etc and 20-30 morbidity associated wth a hip fracture which is all aggravated with pt inability to follow the commanded and being severely demented. Dr. Paige r ecommended that she follows up in 3-4 weeks with repeat Xrays AP pelvis and AP &lateral left hip. Pt is not in pain. Had an extensive discussion with daughter again on 09/01: Agrees with no surgery at this time. Agreeable to consulting palliative care for assistance with coordinating care with current Hospice agency. Patient will need physical therapy and OT evals for possible placement to rehab. Once this acute event has passed, patient may be transitioned back to hospice. (2) No pertinent past surgical history: (3) Hyperlipidemia: Stable, no new issues -Continue Atorvastatin (4) Hypertension: Stable, continue ASA 81 and atenolol. -Consult cardiology for further evaluation of pt operative and postoperative risk (5) Vascular dementia: Pt has severe vascular dementia.This is her baseline per pt daughter Zayra.Continue current home regimen . -Continue Donepezil -Continue Olanzepine -Continue Lorazepam -Continue Duloxetine for chronic pain -Continue hospice as pt family desire Patient has a porr half-way prognosis given her severe dementia. Spent 40 minutes in management of patient. Subjective 83 yo female who is demented. She does not provide significant HISTORY SHE suffers from severe dementia. Patient's daughter and son-in-law are at bedside. We had an extensive conversation with her. Review of Systems Review of Systems: All systems reviewed & are unremarkable except as noted in HPI & below Physical Exam Physical Exam: Constitutional: + cachectic Eyes: PERRL, conjunctivae normal, anicteric sclerae ENMT: external ear and nose normal, oropharynx normal Neck: trachea midline, no thyromegaly Respiratory: normal respiratory effort, lungs clear to auscultation Cardiovascular: RRR, no murmur, no edema Chest (Breasts): normal inspection/palpation of breasts Gastrointestinal (Abdomen): normal bowel sounds, soft, nontender, no hepatosplenomegaly Musculoskeletal: Extremities: + limited ROM of extremities. Pt is unable to follow the commands due to the severe dementia. Left hip on exam -there is no deformity or bruise. Skin is clean dry and intact over the fractured hip. Skin: no rashes, warm and dry Neurologic: awake and + confused Speech / Cognition: + abnormal speech, + expressive aphasia and + abnormal cognition Psychiatric: Thought Process: + incoherent thought process Insight: + severely impaired insight Genitourinary: no vaginal lesions, no adnexal mass Lymphatic: no cervical or axillary lymphadenopathy Results & Data Vital Signs (Past 12 Hours) Vital Signs Temp Pulse Resp BP Pulse Ox 09/01/18 15:28 37.6 C H 73 17 155/76 H 96 PG Care Time/CCT Total # of Minutes Spent Total Time Spent with Patient: Total time spent is greater than 50% in coordination of care (as documented) at patient's floor/unit and/or counseling patient: (1) Closed fracture of left hip Encounter type: initial encounter Qualified Code(s): S72.002A - Fracture of unspecified part of neck of left femur, initial encounter for closed fracture
[2018-09-01] MEDS: ATORVASTATIN 10 MG TAB PO SCH ×2 (22:28→23:17)
[2018-09-01] MEDS: OLANZAPINE 2.5 MG TAB PO SCH (22:29)
[2018-09-02] MEDS: DONEPEZIL HCL 10 MG TAB PO SCH ×2 (00:10→21:08)
[2018-09-02 07:11] LABS: Basophils # (auto) 0.01 K/uL (0-0.2); Basophils % (auto) 0.1 %; Eosinophils # (auto) 0.22 K/uL (0-0.5); Eosinophils % (auto) 2.8 %; Hematocrit (blood only) 32.2 % (37-47); Hemoglobin 10.5 g/dL (12.0-16.0); Immature Granulocytes # (auto) 0.02 K/uL (0.00-0.02); Immature Granulocytes % (auto) 0.3 %; Lymphocytes # (auto) 0.98 K/uL (1.2-3.4); Lymphocytes % (auto) 12.4 %; Mean Corpuscular Hgb Conc 32.6 g/dL (32-36); Mean Platelet Volume 8.6 fL (7.4-10.4); Monocytes # (auto) 0.86 K/uL (0.11-0.59); Monocytes % (auto) 10.9 %; Neutrophils # (auto) 5.81 K/uL (1.4-6.5); Neutrophils % (auto) 73.5 %; Platelet Count 199 K/uL (130-400); RDW Coefficient of Variation 12.5 % (11.5-14.5); RDW Standard Deviation 40.4 fL (36.4-46.3); Red Blood Count 3.62 M/uL (4.2-5.4)
[2018-09-02] MEDS: DULOXETINE HCL 20 MG CAP PO SCH ×2 (08:39→21:09)
[2018-09-02] MEDS: SENNA 8.6 MG TAB PO SCH (08:39)
[2018-09-02] MEDS: LORazepam 1 MG TAB PO PRN (08:40)
[2018-09-02] MEDS: ENOXAPARIN INJ 30 MG/0.3 ML SYR SQ SCH (08:40)
[2018-09-02] MEDS: CYANOCOBALAMIN 500 MCG TABLET (VITAMIN B-12) PO SCH (08:40)
[2018-09-02] MEDS: ASPIRIN 81 MG CHEW PO SCH (08:40)
[2018-09-02] MEDS: POLYETHYLENE (MIRALAX) 17 GM PACK PO SCH (08:41)
[2018-09-02] MEDS: DOCUSATE SODIUM 100 MG CAP PO SCH ×2 (08:44→21:08)
[2018-09-02] MEDS: LORATADINE 10 MG TAB PO SCH (09:03)
[2018-09-02] MEDS: ATENOLOL 25 MG TABLET PO SCH (09:03)
[2018-09-02] MEDS: MoRPHine SULFATE 2 MG/ML CARP IV PRN (13:14)
[2018-09-02] MEDS ORDERED: TRAMADOL HCL 50 MG TABLET PO PRN (15:34)
--- NOTE | 2018-09-02 16:13 | Palliative Care Consultation ---
Date of Consultation September 02, 2018 Assessment & Plan (1) Goals of care, counseling/discussion: -83 year old female patient with PMH moderately severe dementia, htn, HLD, and others, presented to the hospital from [facility] after an unwitnessed fall. She was found to have left closed hip fracture. She was deemed not a candidate for surgery. She is nonweightbearing for 3-4 weeks, but allowed out of bed to chair as tolerated. Patient was on hospice at [facility], but hospice care was revoked when patient was admitted to the hospital. Palliative care is consulted to discuss goals of care. -Met with patient, daughter Zayra Portillo, and Dallin, in room 385. Steve baldwin is tired and slept for most of visit. She did wake long enough to say she was having no pain while at rest. -Daughter Zayra discussed patient's baseline functional status which sounds to be a FAST score of 6b, indicating moderately severe dementia. Is still continent of urine most of the time, able to ambulate with walker, recognizes family. -Zayra states that the goal is for patient to go to rehab if that is what our PT/OT are recommending. After skilled stay, will likely transition back to hospice care. They want no heroics or life-prolonging treatment. -Family denied any other needs at this time. -Please contact our team with any further palliative care needs. (2) Closed fracture of left hip: Encounter type: initial encounter Qualified Code(s): S72.002A - Fracture of unspecified part of neck of left femur, initial encounter for closed fracture (3) Vascular dementia: Supervising Physician Co-Signing Physician Notes Chart reviewed, patient seen and examined-patient's daughter at bedside Collaborated with VANIA Pfeiffer as well as attending physician Dr. Prado PE: Patient asleep, no acute distress Respirations: Unlabored, clear breath sounds CV: Normal rate, no edema Abdomen: Soft, positive bowel sounds Agree with above note, assessment and plan as per VANIA Case Daughter aware that patient will require residential and will not be able to return to [facility]. Recommend - Scheduled Tylenol to thousand milligrams 3 times daily,Pain, PRN Roxanol for severe pain Patient evaluated by PT/OT for skilled care. Will continue to follow and assist family with medical decision making History of Present Illness Reason for Consultation: Goals of care Requesting Physician: Dr. Prado Attending Physician: Sebas Prado History of Present Illness This 83 year old female patient with PMH moderately severe dementia, htn, HLD, and others, presented to the hospital from [facility] after an unwitnessed fall. She was found to have left closed hip fracture. She was deemed not a candidate for surgery. She is nonweightbearing for 3-4 weeks, but allowed out of bed to chair as tolerated. Patient was on hospice at [facility], but hospice care was revoked when patient was admitted to the hospital. Palliative care is consulted to discuss goals of care. Thank you kindly for this consult. I will follow as needed. Allergies Allergy/AdvReac Type Severity Reaction Status Date / Time No Known Allergies Allergy Unverified 08/31/18 00:10 Home Medications Home Medications Medication Instructions Recorded Confirmed Type atenolol [Tenormin] 25 mg PO QAM 12/10/17 08/30/18 History cyanocobalamin (vitamin B-12) 1,000 mcg PO QAM 12/10/17 08/30/18 History [Vitamin B-12] docusate sodium [Colace] 100 mg PO BID 12/10/17 08/30/18 History donepezil [Aricept] 10 mg PO HS 12/10/17 08/30/18 History duloxetine [Cymbalta] 20 mg PO BID 12/10/17 08/30/18 History olanzapine [Zyprexa] 1.25 mg PO HS 12/10/17 08/30/18 History polyethylene glycol 3350 [Miralax] 17 g PO DAILY 12/10/17 08/30/18 History glycerin (adult) 1 supp MO DAILY PRN 06/04/18 08/30/18 History loratadine [Claritin] 10 mg PO DAILY 07/16/18 08/30/18 History atorvastatin 10 mg tablet 10 mg PO HS #90 tab 07/28/18 08/30/18 Rx atropine [Isopto Atropine] 2 drp SUBLINGUAL DIRECTED PRN 08/30/18 08/31/18 History lorazepam [Lorazepam Intensol] 1 mg PO Q4 PRN 08/30/18 08/30/18 History morphine concentrate 10 mg PO Q24W PRN 08/30/18 08/30/18 History acetaminophen 650 mg PO Q6H PRN 08/31/18 08/31/18 History acetaminophen 650 mg MO Q4 PRN 08/31/18 08/31/18 History aspirin [Aspirin Childrens] 81 mg PO DAILY 08/31/18 08/31/18 History clobetasol 1 applic TOPICAL 3XWK 08/31/18 08/31/18 History conjugated estrogens [Premarin] 1 applic VAGINAL 3XWK 08/31/18 08/31/18 History magnesium hydroxide [Milk of 30 ml PO DAILY PRN 08/31/18 08/31/18 History Magnesia] sennosides [senna] 8.6 mg PO DAILY 08/31/18 08/31/18 History Patient History Medical History Hyperlipidemia (Chronic) Hypertension (Chronic) Yeast infection (Resolved) Perineum pain, female (Resolved) Vascular dementia (Chronic) No pertinent family history Surgical History No pertinent past surgical history Family History Other No pertinent family history Social History Preferred Language: Turkmen Communication Ability: Impaired Communication Ability Comment: History of dementia, patient unable to respond marital status: Current Living Situation: Skilled Nursing Current Living Situation Comment: [facility] Feels Safe at Home: Yes Smoking Status: Unknown if ever smoked Review of Systems Review of Systems: Denies pain or SOB. Full ROS difficult to obtain due to cognitive status Physical Exam Constitutional: + frail appearing; no acute distress ENMT: external ear and nose normal, oropharynx normal Neck: normal visual inspection Respiratory: normal respiratory effort, lungs clear to auscultation Cardiovascular: RRR, no murmur, no edema Gastrointestinal (Abdomen): Inspection/Auscultation: abdomen normal to inspection and normal bowel sounds; abdomen not distended Percussion/Palpation: abdomen soft Skin: no rashes, warm and dry Neurologic: moves all extremities Psychiatric: Orientation: oriented to person and oriented to place; + not oriented to time Results & Data Vital Signs (Past 12 Hours) Vital Signs Temp Pulse Resp BP BP Pulse Ox 09/02/18 15:41 36.9 C 69 17 157/80 H 92 09/02/18 07:40 36.6 C 69 16 161/75 H 91 PG Care Time/CCT Total # of Minutes Spent Total Time Spent with Patient: Total time spent is greater than 50% in coordination of care (as documented) at patient's floor/unit and/or counseling patient: Time Spent Midlevel 50 minutes with >50% of the time spent at bedside with patient and family discussing condition and GOC.
[2018-09-02] MEDS: ATORVASTATIN 10 MG TAB PO SCH (21:08)
[2018-09-02] MEDS: OLANZAPINE 2.5 MG TAB PO SCH (21:09)
[2018-09-02] MEDS: ACETAMINOPHEN 500 MG TAB PO SCH (21:11)
--- NOTE | 2018-09-02 23:31 | Hospitalist Progress Note ---
Date of Service September 02, 2018 Assessment & Plan (1) Closed fracture of left hip: Closed left hip fracture , minimally displaced . Pt seen by Dr.Bader Estela mathews and her family had a long discussion with him about plan of care. Pt cardiac risk still needs to be evaluated by cardiology. ECHO cardiogram was done today and EF is 55-60% with mild concentric left ventricular hypertrophy, and otherwise unremarkable. We discussed it with the family and explained to daughter Zayra -even if pt is operable candidate , with her severe dementia she would not be able to comply postoperatively with rehabilitation and non-weight bearing. Specifically we discussed the risks of operation such as bleding , infection, re-operation, nerve damage etc and 20-30 morbidity associated wth a hip fracture which is all aggravated with pt inability to follow the commanded and being severely demented. Dr. Paige r ecommended that she follows up in 3-4 weeks with repeat Xrays AP pelvis and AP &lateral left hip. Pt is not in pain. Had an extensive discussion with daughter again on 09/01: Agrees with no surgery at this time. Agreeable to consulting palliative care for assistance with coordinating care with current Hospice agency. Patient will need physical therapy and OT evals for possible placement to rehab. Once this acute event has passed, patient may be transitioned back to hospice. On 09/02: Patient is being worked for possible rehab placement. Palliative care has seen patient and agrees with hospice once this acute event has subsided. (2) No pertinent past surgical history: (3) Hyperlipidemia: Stable, no new issues -Continue Atorvastatin (4) Hypertension: Stable, continue ASA 81 and atenolol. -Consult cardiology for further evaluation of pt operative and postoperative risk (5) Vascular dementia: Pt has severe vascular dementia.This is her baseline per pt daughter Zayra.Continue current home regimen . -Continue Donepezil -Continue Olanzepine -Continue Lorazepam -Continue Duloxetine for chronic pain -Continue hospice as pt family desire Patient has a poor group home prognosis given her severe dementia. Spent 35 minutes in management of patient. This included discussion with consultants, case management, family. Subjective Patient is a poor historian. Patient does not provide any significant history. Review of Systems Review of Systems: Unobtainable due to mental health condition Physical Exam Physical Exam: Constitutional: + cachectic Eyes: PERRL, conjunctivae normal, anicteric sclerae ENMT: external ear and nose normal, oropharynx normal Neck: trachea midline, no thyromegaly Respiratory: normal respiratory effort, lungs clear to auscultation Cardiovascular: RRR, no murmur, no edema Gastrointestinal (Abdomen): normal bowel sounds, soft, nontender, no hepatosplenomegaly Musculoskeletal: Extremities: + limited ROM of extremities. Pt is unable to follow the commands due to the severe dementia. Left hip on exam -there is no deformity or bruise. Skin is clean dry and intact over the fractured hip. Skin: no rashes, warm and dry Neurologic: awake and + confused Lymphatic: no cervical or axillary lymphadenopathy Results & Data Vital Signs (Past 12 Hours) Vital Signs Temp Pulse Resp BP Pulse Ox 09/02/18 15:41 36.9 C 69 17 157/80 H 92 PG Care Time/CCT Total # of Minutes Spent Total Time Spent with Patient: Total time spent is greater than 50% in coordination of care (as documented) at patient's floor/unit and/or counseling patient: (1) Closed fracture of left hip Encounter type: initial encounter Qualified Code(s): S72.002A - Fracture of unspecified part of neck of left femur, initial encounter for closed fracture
[2018-09-03 07:39] LABS: Eosinophils # (auto) 0.14 K/uL (0-0.5); Eosinophils % (auto) 1.6 %; Hematocrit (blood only) 32.9 % (37-47); Immature Granulocytes # (auto) 0.02 K/uL (0.00-0.02); Immature Granulocytes % (auto) 0.2 %; Lymphocytes # (auto) 0.73 K/uL (1.2-3.4); Lymphocytes % (auto) 8.4 %; Mean Corpuscular Hgb Conc 33.4 g/dL (32-36); Mean Corpuscular Volume 87.5 fL (80-100); Mean Platelet Volume 8.9 fL (7.4-10.4); Monocytes # (auto) 1.02 K/uL (0.11-0.59); Monocytes % (auto) 11.8 %; Neutrophils # (auto) 6.76 K/uL (1.4-6.5); Platelet Count 233 K/uL (130-400); RDW Coefficient of Variation 12.3 % (11.5-14.5); RDW Standard Deviation 39.9 fL (36.4-46.3); Red Blood Count 3.76 M/uL (4.2-5.4); White Blood Count 8.67 K/uL (4.8-10.8)
[2018-09-03] MEDS: ASPIRIN 81 MG CHEW PO SCH (08:43)
[2018-09-03] MEDS: DULOXETINE HCL 20 MG CAP PO SCH (08:44)
[2018-09-03] MEDS: DOCUSATE SODIUM 100 MG CAP PO SCH (08:44)
[2018-09-03] MEDS: LORATADINE 10 MG TAB PO SCH (08:44)
[2018-09-03] MEDS: SENNA 8.6 MG TAB PO SCH (08:45)
[2018-09-03] MEDS: ENOXAPARIN INJ 30 MG/0.3 ML SYR SQ SCH (08:45)
[2018-09-03] MEDS: POLYETHYLENE (MIRALAX) 17 GM PACK PO SCH (08:45)
[2018-09-03] MEDS: ATENOLOL 25 MG TABLET PO SCH (08:45)
[2018-09-03] MEDS: ACETAMINOPHEN 500 MG TAB PO SCH ×2 (08:46→15:26)
[2018-09-03] MEDS: CYANOCOBALAMIN 500 MCG TABLET (VITAMIN B-12) PO SCH (08:46)
[2018-09-03] MEDS: LORazepam 1 MG TAB PO PRN (08:51)
[2018-09-03] MEDS ORDERED: LISINOPRIL 5 MG TAB PO STA (16:13)
[2018-09-03] MEDS ORDERED: LISINOPRIL 2.5 MG TAB PO SCH (21:00)
--- NOTE | 2018-09-11 11:46 | Discharge Summary ---
Date of Service September 03, 2018 Admission HPI Per Admitting Provider Mrs. Wiley is an 83-year-old female who presents via EMS to the emergency room after an unwitnessed fall at her home at [facility] earlier this evening. She is said to have fallen in her room, and then complained of persistent hip pain. She is accompanied by her . In the ED: Radiograph of the hip and pelvis showed transcervical left femoral neck fracture with less than 1 cm of anterior displacement of the distal fracture fragment and osteopenia. Patient was given morphine 4 mg. EKG appears to have some artifact, normal sinus no ST-T wave changes. PMH 1. Vascular dementia with behavioral disturbance 2. Hypotension 3. B12 deficiency 4. Hyperlipidemia 5. 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 On hospice 8. Hypertension PSH 1. Appendectomy SH Lives at [facility]. Is . is her proxy. Has a daughter who is local. Originally born in [place], has reverted to speaking only in Georgian. Principal Diagnosis closed fracture of left hip Discharge Exam Constitutional: + cachectic Eyes: PERRL, conjunctivae normal, anicteric sclerae ENMT: external ear and nose normal, oropharynx normal Neck: trachea midline, no thyromegaly Respiratory: normal respiratory effort, lungs clear to auscultation Cardiovascular: RRR, no murmur, no edema Gastrointestinal (Abdomen): normal bowel sounds, soft, nontender, no hepatosplenomegaly Musculoskeletal: Extremities: + limited ROM of extremities. Pt is unable to follow the commands due to the severe dementia. Left hip on exam -there is no deformity or bruise. Skin is clean dry and intact over the fractured hip. Skin: no rashes, warm and dry Neurologic: awake and + confused Lymphatic: no cervical or axillary lymphadenopathy Discharge Data Allergies Allergy/AdvReac Type Severity Reaction Status Date / Time No Known Allergies Allergy Unverified 08/31/18 00:10 Consultations 08/30/18 23:16 ED Decision to Admit Stat 08/31/18 02:21 Consult Case Management - Discharge Planning Routine 08/31/18 02:28 Consult Orthopedic Surgery Routine 09/01/18 13:55 Consult Palliative Care Routine Ordered Studies 08/31/18 17:03 CT head/brain wo con Stat Hospital Course (1) Closed fracture of left hip: Closed left hip fracture , minimally displaced . Pt seen by - reid and her family had a long discussion with him about plan of care. Pt cardiac risk still needs to be evaluated by cardiology. ECHO cardiogram was done today and EF is 55-60% with mild concentric left ventricular hypertrophy, and otherwise unremarkable. We discussed it with the family and explained to daughter Zayra -even if pt is operable candidate , with her severe dementia she would not be able to comply postoperatively with rehabilitation and non-weight bearing. Specifically we discussed the risks of operation such as bleding , infection, re-operation, nerve damage etc and 20-30 morbidity associated wth a hip fracture which is all aggravated with pt inability to follow the commanded and being severely demented. Dr. Paige recommended that she follows up in 3-4 weeks with repeat Xrays AP pelvis and AP &lateral left hip. Pt is not in pain. Had an extensive discussion with daughter again on 09/01: Agrees with no surgery at this time. Agreeable to consulting palliative care for assistance with coordinating care with current Hospice agency. Patient will need physical therapy and OT evals for possible placement to rehab. Once this acute event has passed, patient may be transitioned back to hospice. On 09/02: Patient is being worked for possible rehab placement. Palliative care has seen patient and agrees with hospice once this acute event has subsided. 09/03: placement completed. Informed family who is in agreement with plan. (2) No pertinent past surgical history: (3) Hyperlipidemia: Stable, no new issues -Continue Atorvastatin (4) Hypertension: Stable, continue ASA 81 and atenolol. -Consult cardiology for further evaluation of pt operative and postoperative risk (5) Vascular dementia: Pt has severe vascular dementia.This is her baseline per pt daughter Zayra.Continue current home regimen . -Continue Donepezil -Continue Olanzepine -Continue Lorazepam -Continue Duloxetine for chronic pain -Continue hospice as pt family desire Patient has a poor custodial prognosis given her severe dementia. Total Time Total Time Spent Total Time Spent (In Minutes): 32 Total Time Includes: Examination of the Patient, Discharge Planning and Medication Reconciliation Discharge Plan Discharge Items Patient Disposition: Transfer [facility] Reason For Visit: FALL, HIP PAIN Discharge Diagnosis: Fall, Hip pain Condition: Fair Discharge Goals: Decrease discomfort Activity: Resume your previous activity Weightbearing: Left non-weightbearing Non-emergency contact: Primary Care Provider Call non-emergency contact if: you have any medication questions Follow-up/Referrals: Pro,Rafa Murphy MD [Primary Care Provider] - Kyle Paige MD [Physician] - 09/25/18 9:15 am Diet: Heart Healthy Addtl Provider Instructions: May be out of bed to chair as tolerated. Limit weight bearing left lower extremity - should be non weight bearing, but no more than toe touch as tolerated for transfers only Allowed for range of motion left knee and ankle as tolerated to prevent stiffness/contractures. Pressure sore precautions - change positions frequently Keep heel off of bed Ice to left hip as needed for pain/swelling Orlin stockings bilateral lower extremities as needed for swelling/LE edema Follow up with Dr. Paige in 3-4 weeks as scheduled Pain should significantly improve over the next 2 weeks. Pain medication as needed for pain control. Recommend Followup with PCP in 2 weeks. Will transition to hospice once rehab for fractured hip has been completed. Prescriptions: New morphine concentrate 100 mg/5 mL (20 mg/mL) Solution 0.5 ml PO Q4HWA PRN (Reason: severe pain) Qty: 20 RF: 0 tramadol 50 mg Tablet 50 mg PO Q4H PRN (Reason: moderate pain) Qty: 20 RF: 0 acetaminophen [Tylenol Extra Strength] 500 mg Tablet 1,000 mg PO TID Qty: 0 RF: 0 aspirin 81 mg Tablet,Chewable 81 mg PO BID Qty: 0 RF: 0 lisinopril 2.5 mg Tablet 2.5 mg PO HS Qty: 30 RF: 0 Continued atorvastatin [Lipitor] 10 mg tablet 10 mg PO HS Qty: 90 RF: 3 polyethylene glycol 3350 [Miralax] 17 gram Powder In Packet 17 g PO DAILY RF: 0 donepezil [Aricept] 10 mg Tablet 10 mg PO HS RF: 0 atenolol [Tenormin] 25 mg Tablet 25 mg PO QAM RF: 0 olanzapine [Zyprexa] 2.5 mg Tablet 1.25 mg PO HS RF: 0 cyanocobalamin (vitamin B-12) [Vitamin B-12] 500 mcg Tablet 1,000 mcg PO QAM RF: 0 docusate sodium [Colace] 100 mg Capsule 100 mg PO BID RF: 0 duloxetine [Cymbalta] 20 mg Capsule,Delayed Release(Dr/Ec) 20 mg PO BID RF: 0 loratadine [Claritin] 10 mg Tablet 10 mg PO DAILY RF: 0 atropine [Isopto Atropine] 1 % drops 2 drp sublingual DIRECTED PRN (Reason: Itching) RF: 0 sennosides [senna] 8.6 mg Tablet 8.6 mg PO DAILY RF: 0 magnesium hydroxide [Milk of Magnesia] 400 mg/5 mL Suspension 30 ml PO DAILY PRN (Reason: Constipation) RF: 0 Premarin 0.625 mg/gram Cream 1 applic VAGINAL 3XWK RF: 0 clobetasol 0.05 % Ointment 1 applic TOPICAL 3XWK RF: 0 glycerin (adult) Suppository 1 supp WI DAILY PRN (Reason: Constipation) RF: 0 Changed lorazepam [Lorazepam Intensol] 2 mg/mL concentrate 0.5 mg PO Q2H PRN (Reason: Agitation) Qty: 15 RF: 0 Discontinued morphine concentrate 100 mg/5 mL (20 mg/mL) solution 10 mg PO Q24W PRN (Reason: Pain) RF: 0 acetaminophen 325 mg Tablet 650 mg PO Q6H PRN (Reason: Pain) RF: 0 acetaminophen 650 mg suppository 650 mg WI Q4 PRN (Reason: moderate pain) RF: 0 aspirin [Aspirin Childrens] 81 mg Tablet,Chewable 81 mg PO DAILY RF: 0 Stand-Alone Forms: [facility] Discharge Orders: Discharge Order (Routine); Ordered 09/03/18 Ordered By: Sebas Prado Skilled Items Patient informed of condition?: Yes DNR: Yes Discharge Level of Care: Skilled Communicable Disease: No Discharge Prognosis: Stable Admission Data Admit Date/Time: 09/01/18 10:22 Attending Provider: Sebas Prado Admit Provider: Nkechi Jose Primary Care Provider: Rafa Hall Other Providers: Azam Delaney ; Clive Segundo ; Prateek Hernández ; Andrea Hicks ; Frederick Elkins ; Andrea Kimball ; Storm Rivero V ; Paula Coffey Service: Surgical Services Other Interventions: Discharge Summary Assessment (RN) Last Done: 09/03/18 17:01 DC Date/Time DO NOT enter until pt leaves facility: 09/03/18 17:15
== END 2018-09-03 17:15 | DRG 536 ==
LOC: 3N 22:26 → ED 22:26 → SUATTDRO 08-31 01:07 → 3N 08-31 01:50